=== PATIENT | male | born 1970 | race Caucasian/White ===

== ENCOUNTER 2019-08-11 02:08 | Emergency (ER) | payer SELFPAY ==
[~2019-08-11] VITALS: Ht 177.8 cm; Wt 86.2 kg
== END 2019-08-11 02:42 | disposition home or self-care (01) ==
LOC: ER 02:08
DX: L02.511 Cutaneous abscess of right hand (principal); T63.301A Toxic effect of unspecified spider venom, accidental (unintentional), initial encounter; I10 Essential (primary) hypertension
CPT/HCPCS: 99282